=== PATIENT | male | born 1970 ===

== ENCOUNTER 2023-02-17 06:06 | Day surgery (SDC) | payer OTHER ==
[~2023-02-17] VITALS: Ht 175.3 cm; Wt 90.7 kg
[~2023-02-17 06:06] MED LIST: CLONAZEPAM2 M1 PO; DEPAKOTE ER500 MG PO; ETODOLAC500 M1 PO; GABAPENTIN800 M1 PO; PEPCID AC20 MG PO; PROTONIX40 MG PO; RESTORIL15 MG PO; SEROQUEL200 MG PO; TAMS0.4C PO; WELLBUTRIN SR150 MG PO
[2023-02-17] MEDS ORDERED: TRAMADOL HCL50 MG PO (13:11)
== END 2023-02-17 15:05 | disposition home or self-care (01) ==
LOC: CIR.AMB 06:06
PROVIDERS: ATTEND Surgery
DX: N52.01 Erectile dysfunction due to arterial insufficiency (principal); N52.9 Male erectile dysfunction, unspecified; Z20.822 Contact with and (suspected) exposure to COVID-19; Z91.013 Allergy to seafood; N48.6 Induration penis plastica
CPT/HCPCS: 54405; C1813

== ENCOUNTER 2023-03-29 11:19 | Emergency (ER) | payer OTHER ==
[~2023-03-29] VITALS: Ht 175.3 cm; Wt 90.7 kg
[~2023-03-29 11:19] MED LIST changes: +TRAMADOL HCL50 MG PO
== END 2023-03-29 15:18 | disposition home or self-care (01) ==
LOC: ER 11:19
DX: N50.812 Left testicular pain (principal); N50.811 Right testicular pain; Z91.013 Allergy to seafood

== ENCOUNTER 2023-03-30 10:13 | Inpatient (IN) | payer OTHER ==
[~2023-03-30] VITALS: Ht 175.3 cm; Wt 90.7 kg
[2023-04-05] MEDS ORDERED: BACTRIM DS TAB1 EACH PO (20:45)
== END 2023-04-06 07:17 | disposition home or self-care (01) | DRG 700 ==
LOC: ER 10:13 → MEDI 19:50
PROVIDERS: ADMIT Surgery; ATTEND Surgery
PROC: BW21YZZ Computerized Tomography (CT Scan) of Abdomen and Pelvis using Other Contrast (ICD-10-PCS; 2023-03-30)
PROC: 02HV33Z Insertion of Infusion Device into Superior Vena Cava, Percutaneous Approach (ICD-10-PCS; principal; 2023-04-03)
DX: T83.61XA Infection and inflammatory reaction due to implanted penile prosthesis, initial encounter (principal); N50.89 Other specified disorders of the male genital organs; B96.20 Unspecified Escherichia coli [E. coli] as the cause of diseases classified elsewhere

== ENCOUNTER → 2023-04-20 | Emergency (ER) | payer OTHER ==
[~2023-04-20] MED LIST changes: +BACTRIM DS TAB1 EACH PO
== END | disposition left against medical advice (07) ==
LOC: ER 06:13
DX: Z53.21 Procedure and treatment not carried out due to patient leaving prior to being seen by health care provider (principal)